=== PATIENT | male | born 1950 | race Caucasian/White ===

== ENCOUNTER 2022-03-13 18:14 | Emergency (ER) | payer OTHER ==
[~2022-03-13] VITALS: Ht 175.3 cm; Wt 66.8 kg
[2022-03-13 18:14] VITALS: BP 126/72
[2022-03-13 19:56] VITALS: BP 120/72
== END 2022-03-13 19:56 | disposition home or self-care (01) ==
LOC: MED 18:14
DX: R55 Syncope and collapse (principal); I10 Essential (primary) hypertension; Z87.448 Personal history of other diseases of urinary system; Z90.49 Acquired absence of other specified parts of digestive tract; Z98.890 Other specified postprocedural states
CPT/HCPCS: 99283